=== PATIENT | male | born 1990 | race Two or more races ===

== ENCOUNTER 2022-07-16 13:22 | Emergency (ER) | payer MEDICAID ==
[~2022-07-16] VITALS: Ht 165.1 cm; Wt 77.2 kg
[2022-07-16 14:14] VITALS: BP 134/93
[2022-07-16] MEDS ORDERED: IBUPROFEN 800 MG TAB PO ONE (15:15)
[2022-07-16] MEDS ORDERED: IBUP800T27 PO (15:17)
== END 2022-07-16 15:35 | disposition home or self-care (01) ==
LOC: ER 13:22
DX: S92.002A Unspecified fracture of left calcaneus, initial encounter for closed fracture (principal); S93.402A Sprain of unspecified ligament of left ankle, initial encounter; W18.39XA Other fall on same level, initial encounter; Y93.89 Activity, other specified; Y92.832 Beach as the place of occurrence of the external cause; Y99.8 Other external cause status
CPT/HCPCS: 29515; 73610